=== PATIENT | female | born 1985 | race African-American/Black ===

== ENCOUNTER 2018-06-20 17:45 | Emergency (ER) | payer OTHER ==
[~2018-06-20] VITALS: Ht 167.6 cm; Wt 68.2 kg
[~2018-06-20 17:45] MED LIST: FERR-89 PO; PREN-154 PO
[2018-06-20] MEDS ORDERED: BACITRACIN 0.9 GM PACKET OINTMENT TP ONE (21:15)
[2018-06-20] MEDS ORDERED: DOXYCYCLINE HYCLATE 100 MG CAPSULE PO ONE (21:15)
[2018-06-20 21:57] VITALS: BP 122/76
== END 2018-06-20 21:58 | disposition home or self-care (01) ==
LOC: EMS 17:46
DX: L03.314 Cellulitis of groin (principal); L73.1 Pseudofolliculitis barbae; F17.210 Nicotine dependence, cigarettes, uncomplicated

== ENCOUNTER 2018-12-24 01:07 | Emergency (ER) | payer OTHER ==
[~2018-12-24] VITALS: Ht 170.2 cm; Wt 66.4 kg
[2018-12-24 03:12] VITALS: BP 124/58
== END 2018-12-24 03:38 | disposition home or self-care (01) ==
LOC: EMS 01:09
DX: J02.9 Acute pharyngitis, unspecified (principal); F41.9 Anxiety disorder, unspecified; F17.210 Nicotine dependence, cigarettes, uncomplicated
CPT/HCPCS: 99406

== ENCOUNTER 2019-03-07 14:25 | Emergency (ER) | payer OTHER ==
[~2019-03-07] VITALS: Ht 172.7 cm; Wt 72.7 kg
[2019-03-07 16:06] VITALS: BP 124/73
== END 2019-03-07 16:12 | disposition home or self-care (01) ==
LOC: EMS 14:32
DX: M67.472 Ganglion, left ankle and foot (principal); R03.0 Elevated blood-pressure reading, without diagnosis of hypertension; F41.9 Anxiety disorder, unspecified; F17.210 Nicotine dependence, cigarettes, uncomplicated

== ENCOUNTER 2021-01-11 10:32 | Emergency (ER) | payer OTHER ==
[~2021-01-11] VITALS: Ht 170.2 cm; Wt 86.4 kg
[2021-01-11 10:35] VITALS: BP 130/88
[2021-01-11] MEDS ORDERED: ALBU8HFA IH (10:44)
[2021-01-11 13:52] LABS: BILIRUBIN,URINE NEGATIVE (NEGATIVE); GLUCOSE, URINE (UA) NEGATIVE (NEGATIVE); KETONES,URINE NEGATIVE (NEGATIVE); LEUKOCYTE ESTERASE ,URINE NEGATIVE (NEGATIVE); NITRATE,URINE NEGATIVE (NEGATIVE); OCCULT BLOOD,URINE NEGATIVE (NEGATIVE); PROTEIN,URINE NEGATIVE (NEGATIVE); UROBILINOGEN,URINE 0.2 mg/dL (<=1.0)
[2021-01-11 13:53] LABS: APPEARANCE,URINE CLOUDY (CLEAR)
[2021-01-11 14:02] LABS: BACTERIA,URINE None Seen /HPF (None Seen); RBC,URINE None Seen /HPF (0-2); SQUAMOUS EPITHELIAL CELL,UR Moderate /LPF (None Seen); WBC,URINE None Seen /HPF (0-5)
== END 2021-01-11 15:30 | disposition home or self-care (01) ==
LOC: EMS 10:32
DX: N76.0 Acute vaginitis (principal); B96.89 Other specified bacterial agents as the cause of diseases classified elsewhere; J45.909 Unspecified asthma, uncomplicated; F41.9 Anxiety disorder, unspecified; F17.210 Nicotine dependence, cigarettes, uncomplicated; Z79.899 Other long term (current) drug therapy
CPT/HCPCS: 81001; 84703; 87210; 87220; 87491; 87591; 99283

== ENCOUNTER 2021-06-11 15:56 | Emergency (ER) | payer OTHER ==
[~2021-06-11] VITALS: Ht 170.2 cm; Wt 81.8 kg
[~2021-06-11 15:56] MED LIST changes: +ALBU8HFA IH; -FERR-89 PO; -PREN-154 PO
[2021-06-11] MEDS ORDERED: KETOROLAC TROMETHAMINE 10 MG TABLET PO ONE (17:00)
[2021-06-11] MEDS ORDERED: CYCL10TA17 PO (17:09)
[2021-06-11 17:10] VITALS: BP 117/70
== END 2021-06-11 17:19 | disposition home or self-care (01) ==
LOC: EMS 15:59
DX: S13.4XXA Sprain of ligaments of cervical spine, initial encounter (principal); J45.909 Unspecified asthma, uncomplicated; F41.9 Anxiety disorder, unspecified; V49.49XA Driver injured in collision with other motor vehicles in traffic accident, initial encounter; Y93.89 Activity, other specified; Y92.89 Other specified places as the place of occurrence of the external cause; Y99.8 Other external cause status
CPT/HCPCS: 99283

== ENCOUNTER 2021-11-04 17:01 | Emergency (ER) | payer OTHER ==
[~2021-11-04] VITALS: Ht 170.2 cm; Wt 80.0 kg
[~2021-11-04 17:01] MED LIST changes: +CYCL-448 PO
[2021-11-04 18:46] VITALS: BP 110/60
[2021-11-04] MEDS ORDERED: PENI500T2 PO (20:09)
[2021-11-04] MEDS ORDERED: PENICILLIN V POTASSIUM 500 MG TABLET PO ONE (20:15)
== END 2021-11-04 20:34 | disposition home or self-care (01) ==
LOC: EMS 17:12
DX: J02.0 Streptococcal pharyngitis (principal); F41.9 Anxiety disorder, unspecified; J45.909 Unspecified asthma, uncomplicated; Z79.899 Other long term (current) drug therapy
CPT/HCPCS: 84702; 86308; 87430; 99283

== ENCOUNTER 2022-03-04 17:50 | Emergency (ER) | payer OTHER ==
[~2022-03-04 17:50] MED LIST changes: +PENI500T2 PO
[2022-03-04 18:21] LABS: COVID AG,FIA SOURCE NASAL SWAB
[2022-03-04 18:44] LABS: INFLUENZA TYPE A NEGATIVE FOR TYPE A (NEGATIVE); INFLUENZA TYPE B NEGATIVE FOR TYPE B (NEGATIVE)
[2022-03-04] MEDS ORDERED: GUAIFDM PO (19:06)
[2022-03-04] MEDS ORDERED: ACET-66 PO (19:06)
[2022-03-04] MEDS ORDERED: OSEL75 PO (19:06)
[2022-03-04] MEDS ORDERED: ALBU8HFA IH (19:06)
== END 2022-03-04 19:30 | disposition home or self-care (01) ==
LOC: EMS 17:50
DX: J11.1 Influenza due to unidentified influenza virus with other respiratory manifestations (principal); F41.9 Anxiety disorder, unspecified; J45.909 Unspecified asthma, uncomplicated; Z98.890 Other specified postprocedural states; Z20.822 Contact with and (suspected) exposure to COVID-19
CPT/HCPCS: 99283; 87426; 87804; C9803

== ENCOUNTER 2022-04-10 07:13 | Emergency (ER) | payer OTHER ==
[~2022-04-10] VITALS: Ht 170.2 cm; Wt 81.8 kg
[~2022-04-10 07:13] MED LIST changes: +ACET-66 PO; +GUAIFDM PO; +OSEL75 PO
[2022-04-10 07:53] VITALS: BP 118/72
[2022-04-10] MEDS ORDERED: ACYC-138 PO (08:11)
== END 2022-04-10 09:04 | disposition home or self-care (01) ==
LOC: EMS 07:19
DX: B00.9 Herpesviral infection, unspecified (principal); F41.9 Anxiety disorder, unspecified; F10.20 Alcohol dependence, uncomplicated; J45.909 Unspecified asthma, uncomplicated
CPT/HCPCS: 99283; Z7502

== ENCOUNTER 2022-05-18 18:50 | Emergency (ER) | payer OTHER ==
[~2022-05-18] VITALS: Ht 170.2 cm; Wt 75.0 kg
[~2022-05-18 18:50] MED LIST changes: +ACYC-138 PO
[2022-05-18] MEDS ORDERED: ACETAMINOPHEN 500 MG TABLET PO ONE (20:30)
[2022-05-18] MEDS ORDERED: LIDOCAINE 5% TRANSDERMAL PATCH TD ONE (20:30)
[2022-05-18 21:36] LABS: APPEARANCE,URINE CLEAR (CLEAR); BILIRUBIN,URINE NEGATIVE (NEGATIVE); GLUCOSE, URINE (UA) NEGATIVE (NEGATIVE); KETONES,URINE NEGATIVE (NEGATIVE); LEUKOCYTE ESTERASE ,URINE NEGATIVE (NEGATIVE); NITRATE,URINE NEGATIVE (NEGATIVE); OCCULT BLOOD,URINE NEGATIVE (NEGATIVE); PH,URINE 5.5 (5.0-8.0); PROTEIN,URINE NEGATIVE (NEGATIVE); SPECIFIC GRAVITIY, URINE 1.016 (1.003-1.030); UROBILINOGEN,URINE <=1.0 mg/dL (<=1.0)
[2022-05-18 22:02] LABS: BACTERIA,URINE None Seen /HPF (None Seen); RBC,URINE None Seen /HPF (0-2); SQUAMOUS EPITHELIAL CELL,UR Few /LPF (None Seen); WBC,URINE 0-2 /HPF (0-5)
[2022-05-18] MEDS ORDERED: BACL10TA PO (23:30)
[2022-05-18] MEDS ORDERED: IBUP-1492 PO (23:31)
[2022-05-18] MEDS ORDERED: LIDO700A15 TP (23:31)
[2022-05-18 23:37] VITALS: BP 115/67
== END 2022-05-18 23:38 | disposition home or self-care (01) ==
LOC: EMS 18:55
DX: M54.50 Low back pain, unspecified (principal); F41.9 Anxiety disorder, unspecified; J45.909 Unspecified asthma, uncomplicated; Z98.890 Other specified postprocedural states
CPT/HCPCS: 72100; 81001; 84703; 99284; Z7502; Z7610

== ENCOUNTER 2022-06-02 17:03 | Emergency (ER) | payer OTHER ==
[~2022-06-02] VITALS: Ht 170.2 cm; Wt 75.0 kg
[~2022-06-02 17:03] MED LIST changes: +BACL10TA PO; +IBUP-1492 PO; +LIDO700A15 TP
[2022-06-02 17:08] VITALS: BP 148/68
[2022-06-02 18:37] LABS: BASOPHILS % (AUTO) 0.5 % (0.0-2.0); EOSINOPHILS % (AUTO) 2.5 % (1.0-6.0); HEMATOCRIT 39.5 % (36-46); HEMOGLOBIN 12.8 g/dL (12.0-16.0); LYMPHOCYTES # (AUTO) 1.4 K/uL (1.0-4.8); LYMPHOCYTES % (AUTO) 28.7 % (22.0-44.0); MEAN CORPUSCULAR HEMOGLOBIN 27.8 pg (26.0-34.0); MEAN CORPUSCULAR HGB CONC 32.4 G/dL (31.0-37.0); MEAN CORPUSCULAR VOLUME 86 fL (80-100); MONOCYTES # (AUTO) 0.4 K/uL (0.1-1.0); MONOCYTES % (AUTO) 8.3 % (2.0-9.0); NEUTROPHILS # (AUTO) 2.8 K/uL (1.8-7.7); PLATELET COUNT (AUTO) 250 K/uL (150-450); RED CELL DISTRIBUTION WIDTH 14.5 % (11.5-14.5)
[2022-06-02 18:54] LABS: ANION GAP 11 mmol/L (8-16); CALCIUM, TOTAL 9.5 mg/dL (8.8-10.5); CARBON DIOXIDE 26 mmol/L (22-29); CHLORIDE 102 mmol/L (98-107); CREATININE 0.84 mg/dL (0.60-1.30); GLOMERULAR FILTR. RATE CALC > 60 mL/min (>60); GLUCOSE,RANDOM 90 mg/dL (70-110); POTASSIUM 3.5 mmol/L (3.5-5.1); SODIUM SERUM 139 mmol/L (136-145); UREA NITROGEN, BLOOD 9 mg/dL (7-18)
== END 2022-06-02 20:20 | disposition home or self-care (01) ==
LOC: EMS 17:04
DX: R10.2 Pelvic and perineal pain (principal); F41.9 Anxiety disorder, unspecified; J45.909 Unspecified asthma, uncomplicated; Z98.890 Other specified postprocedural states; Z32.02 Encounter for pregnancy test, result negative
CPT/HCPCS: 80048; 84702; 85025; 99283

== ENCOUNTER 2022-08-19 18:09 | Emergency (ER) | payer OTHER ==
[~2022-08-19] VITALS: Ht 167.6 cm; Wt 84.1 kg
[~2022-08-19 18:09] MED LIST changes: +ALBU18HF12 IH; -ALBU8HFA IH; -OSEL75 PO; -PENI500T2 PO
[2022-08-19] MEDS ORDERED: ACETAMINOPHEN 500 MG TABLET PO ONE (21:30)
[2022-08-19 21:34] VITALS: BP 113/68
== END 2022-08-19 21:48 | disposition home or self-care (01) ==
LOC: EMS 18:10
DX: R59.1 Generalized enlarged lymph nodes (principal); F17.210 Nicotine dependence, cigarettes, uncomplicated
CPT/HCPCS: 74176; 84702; 99284

== ENCOUNTER 2022-11-26 06:36 | Emergency (ER) | payer OTHER ==
[~2022-11-26] VITALS: Ht 175.3 cm; Wt 82.0 kg
[2022-11-26 06:39] VITALS: TEMP 98.5
[2022-11-26 07:18] VITALS: BP 112/70; PULSE 66; RESP 16
== END 2022-11-26 07:29 | disposition home or self-care (01) ==
LOC: EMS 06:36
DX: Z13.89 Encounter for screening for other disorder (principal); F17.210 Nicotine dependence, cigarettes, uncomplicated
CPT/HCPCS: 99281; Z7502

== ENCOUNTER 2023-05-18 12:06 | Emergency (ER) | payer OTHER ==
[~2023-05-18] VITALS: Ht 170.2 cm; Wt 77.3 kg
[2023-05-18 12:13] VITALS: TEMP 98.9
[2023-05-18] MEDS ORDERED: ONDANSETRON HCL 4 MG/2 ML VIAL IVP ONE (13:15)
[2023-05-18] MEDS ORDERED: SODIUM CHLORIDE 0.9% 1,000 ML IV ONE (13:15)
[2023-05-18 13:28] LABS: BASOPHILS % (AUTO) 0.3 % (0.0-2.0); EOSINOPHILS % (AUTO) 2.1 % (1.0-6.0); HEMATOCRIT 35.6 % (36-46); HEMOGLOBIN 11.5 g/dL (12.0-16.0); LYMPHOCYTES # (AUTO) 1.6 K/uL (1.0-4.8); LYMPHOCYTES % (AUTO) 24.3 % (22.0-44.0); MEAN CORPUSCULAR HEMOGLOBIN 27.6 pg (26.0-34.0); MEAN CORPUSCULAR HGB CONC 32.4 G/dL (31.0-37.0); MEAN CORPUSCULAR VOLUME 85 fL (80-100); MONOCYTES # (AUTO) 0.6 K/uL (0.1-1.0); MONOCYTES % (AUTO) 8.6 % (2.0-9.0); NEUTROPHILS # (AUTO) 4.3 K/uL (1.8-7.7); NEUTROPHILS % (AUTO) 64.7 % (40.0-70.0); PLATELET COUNT (AUTO) 203 K/uL (150-450); RED BLOOD CELL COUNT(AUTO) 4.18 MIL/uL (4.00-5.20); RED CELL DISTRIBUTION WIDTH 15.6 % (11.5-14.5); WHITE BLOOD COUNT (AUTO) 6.7 K/uL (4.5-11.0)
[2023-05-18 13:36] LABS: ANION GAP 8 mmol/L (8-16); CALCIUM, TOTAL 9.5 mg/dL (8.8-10.5); CARBON DIOXIDE 27 mmol/L (22-29); CHLORIDE 102 mmol/L (98-107); CREATININE 1.01 mg/dL (0.60-1.30); GLOMERULAR FILTR. RATE CALC > 60 mL/min (>60); GLUCOSE,RANDOM 131 mg/dL (70-110); POTASSIUM 4.5 mmol/L (3.5-5.1); SODIUM SERUM 137 mmol/L (136-145); UREA NITROGEN, BLOOD 8 mg/dL (7-18)
[2023-05-18 13:42] LABS: ALANINE AMINOTRANSFERASE 17 U/L (12-78); ALBUMIN 3.8 g/dL (3.4-5.0); ALKALINE PHOSPHATASE 69 U/L (46-116); ASPARTATE AMINOTRANSFERASE 13 U/L (15-37); BILIRUBIN,TOTAL 0.2 mg/dL (0.1-1.0); TOTAL PROTEIN, SERUM 7.6 g/dL (6.4-8.2)
[2023-05-18 13:57] LABS: APPEARANCE,URINE CLEAR (CLEAR); BILIRUBIN,URINE NEGATIVE (NEGATIVE); COLOR,URINE LIGHT YELLOW (YELLOW); GLUCOSE, URINE (UA) NEGATIVE (NEGATIVE); KETONES,URINE NEGATIVE (NEGATIVE); LEUKOCYTE ESTERASE ,URINE NEGATIVE (NEGATIVE); NITRATE,URINE NEGATIVE (NEGATIVE); OCCULT BLOOD,URINE NEGATIVE (NEGATIVE); PROTEIN,URINE NEGATIVE (NEGATIVE); SPECIFIC GRAVITIY, URINE 1.017 (1.003-1.030); UROBILINOGEN,URINE <=1.0 mg/dL (<=1.0)
[2023-05-18] MEDS ORDERED: CEPH-558 PO (14:04)
[2023-05-18 14:12] LABS: BACTERIA,URINE None Seen /HPF (None Seen); RBC,URINE None Seen /HPF (0-2); SQUAMOUS EPITHELIAL CELL,UR Few /LPF (None Seen); WBC,URINE None Seen /HPF (0-5)
[2023-05-18 14:35] VITALS: BP 122/74; PULSE 72; RESP 18
== END 2023-05-18 14:37 | disposition home or self-care (01) ==
LOC: EMS 12:19
DX: N76.4 Abscess of vulva (principal); R10.32 Left lower quadrant pain; J45.909 Unspecified asthma, uncomplicated; F17.210 Nicotine dependence, cigarettes, uncomplicated
CPT/HCPCS: 80053; 81001; 84703; 85025; 99283

== ENCOUNTER 2023-10-05 17:00 | Emergency (ER) | payer OTHER ==
[~2023-10-05] VITALS: Ht 170.2 cm; Wt 75.0 kg
[~2023-10-05 17:00] MED LIST changes: -ACET-66 PO; -ACYC-138 PO; -ALBU18HF12 IH; -BACL10TA PO; +CEPH-558 PO; -CYCL-448 PO; -GUAIFDM PO; -IBUP-1492 PO; -LIDO700A15 TP
[2023-10-05 17:04] VITALS: TEMP 98.5
[2023-10-05 18:06] LABS: APPEARANCE,URINE CLEAR (CLEAR); BILIRUBIN,URINE NEGATIVE (NEGATIVE); COLOR,URINE LIGHT YELLOW (YELLOW); GLUCOSE, URINE (UA) NEGATIVE (NEGATIVE); KETONES,URINE NEGATIVE (NEGATIVE); LEUKOCYTE ESTERASE ,URINE NEGATIVE (NEGATIVE); NITRATE,URINE NEGATIVE (NEGATIVE); OCCULT BLOOD,URINE NEGATIVE (NEGATIVE); PH,URINE 6.5 (5.0-8.0); PROTEIN,URINE NEGATIVE (NEGATIVE); SPECIFIC GRAVITIY, URINE 1.018 (1.003-1.030); UROBILINOGEN,URINE <=1.0 mg/dL (<=1.0)
[2023-10-05 18:13] LABS: BASOPHILS % (AUTO) 0.5 % (0.0-2.0); EOSINOPHILS % (AUTO) 2.5 % (1.0-6.0); HEMOGLOBIN 11.5 g/dL (12.0-16.0); LYMPHOCYTES # (AUTO) 1.8 K/uL (1.0-4.8); LYMPHOCYTES % (AUTO) 30.9 % (22.0-44.0); MEAN CORPUSCULAR HEMOGLOBIN 28.2 pg (26.0-34.0); MEAN CORPUSCULAR HGB CONC 32.8 G/dL (31.0-37.0); MEAN CORPUSCULAR VOLUME 86 fL (80-100); MONOCYTES # (AUTO) 0.5 K/uL (0.1-1.0); MONOCYTES % (AUTO) 8.8 % (2.0-9.0); NEUTROPHILS # (AUTO) 3.3 K/uL (1.8-7.7); NEUTROPHILS % (AUTO) 57.3 % (40.0-70.0); PLATELET COUNT (AUTO) 199 K/uL (150-450); RED BLOOD CELL COUNT(AUTO) 4.07 MIL/uL (4.00-5.20); RED CELL DISTRIBUTION WIDTH 16.1 % (11.5-14.5); WHITE BLOOD COUNT (AUTO) 5.7 K/uL (4.5-11.0)
[2023-10-05 18:14] LABS: HCG,QUAL URINE NEGATIVE (NEGATIVE)
[2023-10-05 18:17] LABS: ANION GAP 6 mmol/L (8-16); CALCIUM, TOTAL 9.4 mg/dL (8.8-10.5); CARBON DIOXIDE 29 mmol/L (22-29); CHLORIDE 103 mmol/L (98-107); CREATININE 0.73 mg/dL (0.60-1.30); GLOMERULAR FILTR. RATE CALC > 60 mL/min (>60); GLUCOSE,RANDOM 119 mg/dL (70-110); POTASSIUM 4.6 mmol/L (3.5-5.1); SODIUM SERUM 138 mmol/L (136-145); UREA NITROGEN, BLOOD 15 mg/dL (7-18)
[2023-10-05] MEDS ORDERED: SODIUM CHLORIDE 0.9% 100 ML ONE (18:20)
[2023-10-05] MEDS ORDERED: IOHEXOL 350 MG/ML 100 ML VIAL ONE (18:20)
[2023-10-05 18:28] LABS: ALANINE AMINOTRANSFERASE 19 U/L (12-78); ALBUMIN 3.6 g/dL (3.4-5.0); ALKALINE PHOSPHATASE 67 U/L (46-116); ASPARTATE AMINOTRANSFERASE 10 U/L (15-37); BILIRUBIN,TOTAL 0.2 mg/dL (0.1-1.0); HCG,QUANTITATIVE < 1 mIU/mL (0-6); LIPASE 23 U/L (16-77); TOTAL PROTEIN, SERUM 7.6 g/dL (6.4-8.2)
[2023-10-05 18:34] LABS: RBC,URINE None Seen /HPF (0-2)
[2023-10-05 18:35] LABS: BACTERIA,URINE None Seen /HPF (None Seen); WBC,URINE None Seen /HPF (0-5)
[2023-10-05] MEDS: ACETAMINOPHEN 500 MG TABLET PO ONE (18:35)
[2023-10-05] MEDS: ONDANSETRON HCL 4 MG/2 ML VIAL IVP ONE (18:44)
[2023-10-05 20:00] VITALS: BP 110/60; PULSE 92; RESP 18
[2023-10-05] MEDS ORDERED: ONDA-104 PO (20:04)
== END 2023-10-05 20:27 | disposition home or self-care (01) ==
LOC: EMS 17:01
DX: R10.33 Periumbilical pain (principal); R11.2 Nausea with vomiting, unspecified; F17.210 Nicotine dependence, cigarettes, uncomplicated
CPT/HCPCS: 99285; 74177; 80053; 81001; 83690; 84702; 84703; 85025; 36415; Q9967; J7050; 81003; J2405

== ENCOUNTER 2024-11-24 16:20 | Emergency (ER) | payer MEDICAID, OTHER ==
[~2024-11-24] VITALS: Ht 172.7 cm; Wt 93.2 kg
[~2024-11-24 16:20] MED LIST changes: -CEPH-558 PO; +ONDA-104 PO
[2024-11-24 16:29] VITALS: TEMP 98.6
[2024-11-24 17:04] LABS: APPEARANCE,URINE CLEAR (CLEAR); GLUCOSE, URINE (UA) NEGATIVE (NEGATIVE); LEUKOCYTE ESTERASE ,URINE NEGATIVE (NEGATIVE); NITRATE,URINE NEGATIVE (NEGATIVE); OCCULT BLOOD,URINE NEGATIVE (NEGATIVE); SPECIFIC GRAVITIY, URINE 1.013 (1.003-1.030)
[2024-11-24 17:14] LABS: SQUAMOUS EPITHELIAL CELL,UR Rare /LPF (None Seen)
[2024-11-24] MEDS: SODIUM CHLORIDE 0.9% 1,000 ML IV ONE (17:30)
[2024-11-24] MEDS: ONDANSETRON HCL 4 MG/2 ML VIAL IVP ONE (17:31)
[2024-11-24 17:35] LABS: PLATELET COUNT (AUTO) 211 K/uL (150-450); RED BLOOD CELL COUNT(AUTO) 4.03 MIL/uL (4.00-5.20); RED CELL DISTRIBUTION WIDTH 15.0 % (11.5-14.5); WHITE BLOOD COUNT (AUTO) 5.9 K/uL (4.5-11.0)
[2024-11-24 17:48] LABS: CALCIUM, TOTAL 9.3 mg/dL (8.8-10.5); CREATININE 0.74 mg/dL (0.60-1.30); GLOMERULAR FILTR. RATE CALC > 60 mL/min (>60); GLUCOSE,RANDOM 84 mg/dL (70-110); SODIUM SERUM 139 mmol/L (136-145); UREA NITROGEN, BLOOD 10 mg/dL (7-18)
[2024-11-24] MEDS: ALBUTEROL SULFATE HFA 90 MCG/PUFF 8 GM INHALER IH ONE (18:27)
[2024-11-24] MEDS ORDERED: MAG30ORA11 PO (18:42)
[2024-11-24] MEDS ORDERED: ALBU18HF12 IH (18:42)
[2024-11-24] MEDS ORDERED: ACET-66 PO (18:42)
[2024-11-24] MEDS ORDERED: OMEP-148 PO (18:42)
[2024-11-24 18:57] VITALS: BP 118/70; PULSE 82; RESP 20; O2SAT 99
== END 2024-11-24 19:02 | disposition home or self-care (01) ==
LOC: EMS 16:20
DX: K21.9 Gastro-esophageal reflux disease without esophagitis (principal); R10.13 Epigastric pain; J45.909 Unspecified asthma, uncomplicated; F17.210 Nicotine dependence, cigarettes, uncomplicated; Z79.899 Other long term (current) drug therapy; Z98.890 Other specified postprocedural states
CPT/HCPCS: 99283; 96374; 96361; 80048; 81001; 83690; 84703; 85025; 36415; 94640; J2405; J7030; J3535